=== PATIENT | female | born 2005 | race African-American/Black ===

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

== ENCOUNTER 2024-02-10 16:48 | Emergency (ER) | payer SELFPAY ==
--- OUTSIDE RECORDS SUMMARY | 2024-02-10 16:51 | XMS REPORT | Continuity of Care Document ---
Author Name Unknown Address [address] [place] [address] [facility] Address [address] [place] [address] Care Team Providers Care Recreation Teacher Name Role Phone Unavailable Unavailable Unavailable Encounters Start Date/Time End Date/Time Encounter Type Admission Type Attending Clinicians [facility] Facility Care Department Encounter ID Source 2023-08-23 09:42:16 2023-08-23 09:42:16 Outpatient [facility] [id number] 2023-05-21 10:28:13 2023-05-21 10:28:13 Outpatient [facility] [id number] 2023-05-19 09:49:47 2023-05-19 09:49:47 Outpatient [facility] [id number] 2023-03-08 11:00:10 2023-03-08 11:00:10 Outpatient [facility] [id number] 2023-02-25 13:08:57 2023-02-25 13:08:57 Outpatient [facility] [id number]ales Results Test Description Test Time Test Comments Results Result Co mments Source [facility] DNA [id number] 13:59:27* Test Item Value Reference Range Interpretation Comme nts GAYLE SPECIES (test code = ) NEGATIVE NEGATIVE G. VAGINALIS (test code = ) POSITIVE NEGATIVE A T. VAGINALIS (test code = ) NEGATIVE NEGATIVE Note: The BD Aff irm VPIII Microbial Identification Testis a DNA probe test intended for use in the detectionand identification of Gayle species, Gardnerellavaginalis and Trichomonas vaginalis nucleic acid. RPR REFLEX TO T. PALLIDUM - [id number] 04:32:36* Test Item Value Reference Range Interpretation Comme nts RPR (test code = 99755) NON-REACTIVE NON-REACTIVE RPR TITER (test code = 3500) NOT INDIC. TITER NOT INDIC. HIV 1/2 4TH GEN, RFLX [id number] 04:14:41* Test Item Value Reference Range Interpretation Comme nts HIV 1/2 4TH GEN, RFLX CONF (test code = 3514) NON-REACTIVE NON-REACTIVE UNLESS OTHERWISE INDICATED, ALL TESTING PERFORMED AT [facility] [address] [place] [address] UNIVERSITY CONTROLLER: WERO ROLON M.D. CLIA NUMBER [id number] [facility] [place]. [id number]
--- NOTE | 2024-02-10 18:57 | ER ---
Nurse's Notes [facility] Sae Name: Oneida Rolon Age: 19 yrs Sex: Female : 2005 Arrival Date: 02/10/2024 Time: 16:48 Bed DX4 Private MD: Diagnosis: Displaced transverse fracture of shaft of right ulna, initial encounter for closed fracture Presentation: 02/09 16:58 Chief complaint: Patient states: RIGHT ARM AND WRIST PAIN. STATES STARTED TUESDAY db UNSURE HOW INJURED. USING HAND FOR TEXTING. Coronavirus screen: Client denies travel out of the [place] in the last 14 days. At this time, the client does not indicate any symptoms associated with coronavirus-19. Ebola Screen: Patient negative for fever greater than or equal to 101.5 degrees Fahrenheit, and additional compatible Ebola Virus Disease symptoms Patient denies exposure to infectious person. Patient denies travel to an Ebola-affected area in the 21 days before illness onset. No symptoms or risks identified at this time. Initial Sepsis Screen: Does the patient meet any 2 criteria? No. Patient's initial sepsis screen is negative. Does the patient have a suspected source of infection? No. Patient's initial sepsis screen is negative. Risk Assessment: Do you want to hurt yourself or someone else? Patient reports no desire to harm self or others. Onset of symptoms was February 04, 2024. 16:58 Method Of Arrival: Ambulatory db 16:58 Acuity: RILEY 4 db Triage Assessment: 17:03 General: Appears in no apparent distress. comfortable, Behavior is calm, cooperative. db Pain: Complains of pain in right arm. Neuro: Level of Consciousness is awake, alert, obeys commands, Oriented to person, place, time, situation. Musculoskeletal: Circulation, motion, and sensation intact. Capillary refill < 3 seconds, Range of motion: limited in right wrist. Injury Description: Bruise sustained to right arm. 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 - Infectious Disease History:: Denies. - Social history:: Smoking status: Patient denies any tobacco usage or history of. - Family history:: not pertinent. - Hospitalizations: : No recent hospitalization is reported. Screenin:[facility] ED Fall Risk Assessment (Adult) History of falling in the last 3 months, pf1 including since admission No falls in past 3 months (0 pts) Confusion or Disorientation No (0 pts) Intoxicated or Sedated No (0 pts) Impaired Gait No (0 pts) Mobility Assist Device Used No (0 pt) Altered Elimination No (0 pt) Score/Fall Risk Level 0 - 2 = Low Risk Oriented to surroundings, Maintained a safe environment, Educated pt \T\ family on fall prevention, incl call for assistance when getting out of bed, Assessed \T\ reinforced patient's understanding of fall precautions, Provided non-skid footwear, Hourly rounding (assess needs \T\ fall precautionary measures) done, Used ambulatory aids as needed (educated on \T\ assisted with), Used gait belt as appropriate. Abuse screen: Denies threats or abuse. Nutritional screening: No deficits noted. Tuberculosis screening: No symptoms or risk factors identified. Assessment: 19:00 General: Appears in no apparent distress. comfortable, well groomed, well developed, pf1 Behavior is calm, cooperative, appropriate for age, quiet. 19:00 Pain: Complains of pain in right wrist and right arm. Neuro: No deficits noted. Level pf1 of Consciousness is awake, alert, obeys commands, Oriented to person, place, time, situation. Cardiovascular: No deficits noted. Capillary refill < 3 seconds Patient's skin is warm and dry. Respiratory: No deficits noted. Airway is patent Respiratory effort is even, unlabored, Respiratory pattern is regular, symmetrical. GI: No deficits noted. No signs and/or symptoms were reported involving the gastrointestinal system. : No deficits noted. No signs and/or symptoms were reported regarding the genitourinary system. EENT: No deficits noted. No signs and/or symptoms were reported regarding the EENT system. Derm: No deficits noted. No signs and/or symptoms reported regarding the dermatologic system. Musculoskeletal: Reports pain in right wrist and right arm. Vital Signs: 16:58 BP 118 / 74; Pulse 76; Resp 16; Temp 98.9(O); Pulse Ox 98% ; Weight 64.41 kg; Height 5 db ft. 8 in. ; 19:24 BP 115 / 70; Pulse 72; Resp 16; Temp 98; Pulse Ox 100% on R/A; Pain 3/10; pf1 16:58 Body Mass Index 21.59 (64.41 kg, 172.72 cm) db 19:24 Pain Scale: Adult pf1 ED Course: 16:52 Patient arrived in ED. mg5 16:58 Hayes Mccormick MD is Attending Physician. rn 17:02 Triage completed. db 17:03 Arm band placed on Patient placed in waiting room. db 18:13 XRAY Forearm RIGHT In Process Unspecified. EDMS 18:56 Main Madrid MD is Referral Physician. rn 19:00 Patient has correct armband on for positive identification. pf1 19:00 Orthoglass splint: Sugar tong splint applied on right arm. Sling \T\ swathe to right arm. pf1 19:20 No provider procedures requiring assistance completed. Patient did not have IV access pf1 during this emergency room visit. 19:26 Provided Education on: follow up with ortho and ortho care. pf1 Administered Medications: No medications were administered Medication: 19:26 VIS not applicable for this client. pf1 Outcome: 18:56 Discharge ordered by . rn 19:25 Discharged to home ambulatory, pf1 19:25 Condition: stable 19:25 Discharge instructions given to patient, Instructed on discharge instructions, follow up and referral plans. Demonstrated understanding of instructions, follow-up care, 19:27 Patient left the ED. pf1 Signatures: Dispatcher [employer] EDWA Hayes Mccormick MD MD rn Benton, Danielle, RN RN db Finley, Pamala, RN RN pf1 Dariana Cedeño mg5 Corrections: (The following items were deleted from the chart) 17:04 16:58 BP 118 / 74; Pulse 76bpm; Resp 16bpm; Pulse Ox 98%; Temp 98.9F Oral; db db
--- NOTE | 2024-02-10 18:57 | EDPHYS ---
[facility] Name: Oneida Rolon Age: 19 yrs Sex: Female : 2005 Arrival Date: 02/10/2024 Time: 16:48 Bed DX4 Private MD: ED Physician Hayes Mccormick HPI: 02/09 17:58 This 19 yrs old Black Female presents to ER via Ambulatory with complaints of Arm rn Injury. 17:58 The patient or guardian complains of injury, pain. The complaints affect the palmar rn aspect of right forearm. Onset: The symptoms/episode began/occurred 5 day(s) ago. Modifying factors: The symptoms are alleviated by nothing. the symptoms are aggravated by movement. Severity of symptoms: At their worst the symptoms were mild, in the emergency department the symptoms are unchanged. Patient reports celebrating over the weekend, was drinking, woke up with pain to the right arm. Does not remember injury. Only pain is to right distal ulna.. 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 - Infectious Disease History:: Denies. - Social history:: Smoking status: Patient denies any tobacco usage or history of. - Family history:: not pertinent. - Hospitalizations: : No recent hospitalization is reported. ROS: 17:58 Constitutional: Negative for fever, chills, and weight loss, MS/Extremity: Positive for rn injury and pain to right distal forearm. Exam: 17:58 Constitutional: This is a well developed, well nourished patient who is awake, alert, rn and in no acute distress. MS/ Extremity: Mild tenderness and ecchymosis to distal ulna. No open wounds Vital Signs: 16:58 BP 118 / 74; Pulse 76; Resp 16; Temp 98.9(O); Pulse Ox 98% ; Weight 64.41 kg; Height 5 db ft. 8 in. ; 19:24 BP 115 / 70; Pulse 72; Resp 16; Temp 98; Pulse Ox 100% on R/A; Pain 3/10; pf1 16:58 Body Mass Index 21.59 (64.41 kg, 172.72 cm) db 19:24 Pain Scale: Adult pf1 MDM: 16:58 Patient medically screened. rn 18:55 Differential diagnosis: closed fracture, contusion. Data reviewed: vital signs, nurses rn notes, radiologic studies, plain films, and as a result, I will discharge patient. Counseling: I had a detailed discussion with the patient and/or guardian regarding the historical points, exam findings, and any diagnostic results supporting the discharge/admit diagnosis, radiology results, the need for outpatient follow up, to return to the emergency department if symptoms worsen or persist or if there are any questions or concerns that arise at home. Special discussion: I discussed with the patient/guardian in detail that at this point there is no indication for admission to the hospital. It is understood, however, that if the symptoms persist or worsen the patient needs to return immediately for re-evaluation. ED course: Patient with distal ulnar fracture. Already 5 or 6 days old. Will splint and follow-up with Ortho.. 02/09 17:04 Order name: XRAY Forearm RIGHT rn 02/09 18:15 Order name: Splint - Sugar Tong - Forearm; Complete Time: 18:52 rn 02/09 18:16 Order name: Sling; Complete Time: 18:52 rn Administered Medications: No medications were administered Disposition Summary: 02/10/24 18:56 Discharge Ordered Notes: Location: Home rn Problem: new rn Symptoms: have improved rn Condition: Stable rn Diagnosis - Displaced transverse fracture of shaft of right ulna, initial encounter for closed rn fracture Followup: rn - With: Main Madrid MD - When: 5 - 6 days - Reason: Recheck today's complaints, Re-evaluation by your physician Discharge Instructions: - Discharge Summary Sheet rn - Cast or Splint Care, Adult rn - Ulnar Fracture rn Forms: - Medication Reconciliation Form rn - Thank You Letter rn - Antibiotic mechanical engineering intern - Prescription Opioid Use rn - Patient Portal Instructions rn - Leadership Thank You Letter rn Signatures: Dispatcher [employer] EDMS Hayes Mccormick MD MD rn Benton, Danielle, RN RN db Corrections: (The following items were deleted from the chart) 17:05 17:05 Forearm Right+[id number].RAD.BRZ ordered. EDMS EDMS
--- NOTE | 2024-02-10 19:38 | RAD REPORT ---
EXAM DESCRIPTION: RAD - Forearm Right - 02/10/2024 6:11 pm CLINICAL HISTORY: PAIN COMPARISON: No comparisons TECHNIQUE: Right forearm, 2 views. FINDINGS: Mildly displaced distal ulnar shaft fracture. . There is no dislocation or periosteal reac tion noted. No foreign body or other soft tissue abnormality. IMPRESSION: Mildly displaced distal ulnar shaft fracture.
[2024-02-11 03:32] VITALS: BP 115/70; TEMP 98; O2SAT 100
== END 2024-02-10 19:27 | disposition home or self-care (01) ==
LOC: ER 16:48
PROC: 2W3CX1Z Immobilization of Right Lower Arm using Splint (ICD-10-PCS; principal; 2024-02-10)
DX: S52.221A Displaced transverse fracture of shaft of right ulna, initial encounter for closed fracture (principal)
CPT/HCPCS: 99283